=== PATIENT | female | born 1985 | race American Indian/Alaskan Native ===

== ENCOUNTER 2021-04-24 16:51 | Emergency (ER) | payer OTHER, MEDICAID ==
[2021-04-24 17:03] VITALS: BP 116/80
--- NOTE | 2021-04-24 18:49 | Emergency Department Report ---
ED General Adult HPI - General Chief complaint: Shoulder Injury Stated complaint: shoulder pain Time Seen by Provider: 04/24/21 18:47 Source: patient Mode of arrival: Ambulatory Limitations: No Limitations - History of Present Illness Initial comments: 35-year-old [id number] female patient presents to the emergency department with complaints of left shoulder pain for 1 week. No preceding fall, trauma, or injury. Pain is not reproducible with movement. Patient has been taking Ibuprofen with limited relief. No history of prior shoulder injuries. No history of hypertension, hyperlipidemia, diabetes. No family history of early heart disease. Denies headache, neck pain, shortness of breath, nausea, vomiting, diaphoresis, palpitations, lower extremity pain/swelling. Denies all other complaints at this time. - Related Data Allergies Allergy/AdvReac Type Severity Reaction Status Date / Time No Known Allergies Allergy Verified 04/24/21 17:00 ED Review of Systems ROS: Stated complaint: HEADACHE/SHOULDER PAIN/WOOZY Other details as noted in HPI Other: GENERAL: Negative for fever. CARDIOVASCULAR: Negative for chest pain. PULMONARY: Negative for shortness of breath. GASTROINTESTINAL: Negative for abdominal pain. MUSCULOSKELETAL: Positive for shoulder pain NEUROLOGICAL: Negative for syncope. INTEGUMENTARY: Negative for rash. ED Past Medical Hx - Past Medical History Hx GERD: Yes Hx Asthma: Yes Additional medical history: SINUS/ALLERGIES - Surgical History Hx Breast Surgery: Yes (LUMP REMOVED LEFT BREAST/ BIOPSY) - Social History Smoking Status: Never Smoker Substance Use Type: Alcohol ED Physical Exam - General Limitations: No Limitations - Other Other exam information: General: Awake, appropriately interactive, no acute distress. Neck: Supple. Full range of motion intact. Cardiovascular: Normal peripheral perfusion. Pulmonary: No respiratory distress. Patient is speaking normally without use of accessory muscles. Skin: No apparent rashes or lesions. Neurological: No facial asymmetry. Speech is clear. Follows commands. Patient is alert and oriented. Musculoskeletal: Patient reports pain to the left shoulder without reproducible tenderness. No obvious deformity. Full range of motion intact. Distal neurovascular and motor/sensory function intact. Psych: Cooperative. Appropriate mood and affect. ED Course Vital Signs 04/24/21 17:02 Temperature 99.1 F Pulse Rate 83 Respiratory 16 Rate Blood Pressure 116/80 O2 Sat by Pulse 97 Oximetry ED Medical Decision Making - EKG Data 04/24/21 19:09 EKG shows normal sinus rhythm with a ventricular rate of 86 bpm. Normal axis. Normal IN interval. Normal QT interval. Good R wave progression. No ST segment changes. Over read by attending emergency physician, who agrees with this interpretation. - Medical Decision Making Patient presents to the emergency department with complaints of nontraumatic left shoulder pain for 1 week. She is afebrile, hemodynamically stable, neurovascularly intact. Full range of motion of the left shoulder is intact. EKG obtained due to the non-reproducible nature of the patient's reported shoulder discomfort, which was within normal limits. In the absence of trauma or signs of neurovascular compromise, there is no clinical indication to perform imaging on an emergent basis. Patient will be discharged home with referral to primary care provider for close outpatient follow-up. Strict return precautions provided. Repeat exam is unremarkable and benign. History, exam, diagnostic testing, and current condition do not suggest worrisome pathology to warrant further testing, continued ED treatment, admission, or surgical evaluation at this point. Given the low probability of a significant medical illness, it would be more likely to result in harm than benefit to perform further testing at this stage. Discussed findings, presumptive diagnosis, need for follow-up and specific signs/symptoms that should prompt immediate return to the emergency department. Instructions were explained in detail to the patient in addition to giving written discharge information. Patient expressed understanding and was given the opportunity to ask questions, all of which were satisfactorily answered prior to discharge home. Critical care attestation.: If time is entered above; I have spent that time in minutes in the direct care of this critically ill patient, excluding procedure time. ED Disposition Clinical Impression: Left shoulder pain Qualifiers: Chronicity: acute Qualified Code(s): M25.512 - Pain in left shoulder Disposition: DC-01 TO HOME OR SELFCARE Is pt being admited?: No Does the pt Need Aspirin: No Condition: Stable Instructions: Shoulder Pain, [id number] Additional Instructions: Take Tylenol every 4 hours and Motrin every 8 hours as needed for pain. Gradually advance physical activity slowly as tolerated. Follow-up with primary care provider this week. Call tomorrow to schedule an appointment. See referral information below. Return to the emergency department immediately for new or worsening symptoms. Referrals: IVONNE ALEJO MD [Staff Physician] - 3-5 Days [facility] [Outside] - 3-5 Days [facility] [Outside] - 3-5 Days [facility] [place] [Outside] - 3-5 Days [facility] [Provider Group] - 3-5 Days Time of Disposition: 19:11
--- NOTE | 2021-04-25 14:10 | Electrocardiograph Report ---
[facility] Test Date: 2021-04-24 Test Time: 19:00:15 Pat Name: ELANA PEÑA Department: Room: Gender: F Drafter (Cad) Electronic: COOPER : 1985 Requested By: KSENIA GUERRA Order Number: [id number] Reading MD: Clem Lee Measurements Intervals [place] Rate: 86 P: 53 MT: 149 QRS: 40 QRSD: 76 T: 30 QT: 345 QTc: 414 Interpretive Statements Sinus rhythm Probable left atrial enlargement No previous ECG available for comparison Electronically Signed On 04-25-2021 14:09:55 EDT by Clem Lee
== END 2021-04-24 19:30 | disposition home or self-care (01) ==
LOC: ED 16:51
DX: M25.512 Pain in left shoulder (principal); K21.9 Gastro-esophageal reflux disease without esophagitis; J45.909 Unspecified asthma, uncomplicated; Z98.890 Other specified postprocedural states
CPT/HCPCS: 93005; 99282